=== PATIENT | female | born 1990 | race American Indian/Alaskan Native ===

== ENCOUNTER 2024-04-04 01:28 | Emergency (ER) | payer MEDICAID, SELFPAY ==
[2024-04-04 01:29] VITALS: BMI 55.0
[2024-04-04 02:29] VITALS: BP 152/78; PULSE 70; RESP 18; TEMP 36.9; O2SAT 96
[2024-04-04] MEDS: DEXAMETHASONE SOD PHOS INJ 10 MG/ML VIAL 20 MG PO (02:56)
[2024-04-04] MEDS: DiphenhydrAMINE 25 MG CAPSULE 50 MG PO (02:57)
[2024-04-04] MEDS: FAMOTIDINE 20 MG TABLET 40 MG PO (02:57)
--- NOTE | 2024-04-04 04:55 | PD.EDALLER ---
ED Allergic Reaction RME/HPI General Chief complaint: Skin/Abscess/Foreign Body Stated complaint: BROKE OUT IN HIVES Time Seen by Provider: 04/04/24 02:22 Arrival date/time: 04/04/24 01:28 33F with no significant PMH presents to ED with 3 days of generalized itchy rash. Patient denies new meds, foods, hygiene products, SOB, and throat swelling. Limitations: no limitations Related Data Home Medications ?Medication ?Instructions ?Recorded ?Confirmed ergocalciferol (vitamin D2) 1,250 50,000 unit PO QWEEK 10/13/18 10/31/18 mcg (50,000 unit) capsule (Vitamin D2) vitamins-iron fumarate 27 1 tab PO QDAY 10/24/18 10/31/18 mg iron-folic acid 0.8 mg tablet ( Vitamin) Previous Rx's ?Medication ?Instructions ?Recorded ibuprofen 800 mg tablet 800 mg PO Q6H PRN pain #90 tabs 10/31/18 prednisone 50 mg tablet 50 mg PO QDAY 7 days #7 tabs 04/04/24 Allergies Allergy/AdvReac Type Severity Reaction Status Date / Time Penicillins Allergy Unknown SWELLING Verified 08/17/23 16:56 Review of Systems Review of Systems Systems Reviewed: All systems reviewed, normal except as documented Constitutional Constitutional: Reports system reviewed and no additional complaints, except as documented, Denies fever(s) and Denies headache(s) ENT Ears, Nose, Mouth, and Throat: Denies disequilibrium and Denies headache(s) Cardiovascular Cardiovascular: Reports system reviewed and no additional complaints, except as documented, Denies chest pain and Denies dyspnea Respiratory Respiratory: Reports system reviewed and no additional complaints, except as documented, Denies cough and Denies dyspnea Gastrointestinal Gastrointestinal: Reports system reviewed and no additional complaints, except as documented, Denies abdominal pain, Denies nausea and Denies vomiting Integumentary/Breasts Skin/Breast: Reports as per HPI, Reports pruritus and Reports rash Neurologic Neurologic: Reports system reviewed and no additional complaints, except as documented, Denies confusion, Denies disequilibrium and Denies headache(s) Psychiatric Psychiatric: Denies confusion Past Medical History Past Medical History NEUROLOGIC: Positive Head Trauma (skull fracture age 13) CARDIAC: Negative Congestive Heart Failure RESPIRATORY: Negative Chronic Obstructive Pulmonary Disease (COPD) GASTROINTESTINAL: Positive Obesity GENITOURINARY: Positive Genitourinary Disorders (UTI); Negative Renal Disease REPRODUCTIVE: Positive Previous Pregnancies (8, 1 vaginal and 6 SAB) MUSCULOSKELETAL: Positive Scoliosis and Fractures (left ulna 2014) ENT: Positive Ear Infection (10/2018) and Head Trauma (skull fracture age 13) ENDOCRINE: Negative Diabetes Mellitus Type 1 or Diabetes Mellitus Type 2 HEMATOLOGIC: Positive Anemia PSYCHO/SOCIAL: Positive Depression (after family when age 13) OTHER HISTORY: Positive Hospitalization (2 surgeries and vaginal delivery) and Chicken Pox Family History FAMILY HISTORY: Positive Family Psychiatric Problems (2 brothers, paternal uncle depression/ suicide.), Family Respiratory Disorders (daughter asthma), Family Cardiac Disorders (MGM and Father HTN, Father enlarged and weeping heart, MGM Stroke), Family Gastrointestinal Problems (sister ulcers), Family Cancer (MGGM breast, PGM ovarian) and Family Surgery (multilple family members) Surgical History SURGICAL: Negative Section Social History SMOKING STATUS: Never smoker ED Exam General Limitations: Present no limitations General appearance: Present alert and in no apparent distress Head Head exam: Present atraumatic Eye Eye exam: Present normal appearance, PERRL and EOMI ENT ENT exam: Present normal exam, normal oropharynx and mucous membranes moist Neck Neck exam: Present normal inspection, full ROM and trachea midline Chest Chest inspection: Present normal inspection and symmetric chest wall rise Respiratory Respiratory exam: Present normal lung sounds bilaterally Cardiovascular Cardiovascular exam: Present regular rate, normal rhythm and normal heart sounds Abdominal Exam Abdominal exam: Present soft and normal bowel sounds Extremities Exam Extremities exam: Present normal inspection and full ROM Back Exam Back exam: Present normal inspection and full ROM Neurological Exam Neurological exam: Present alert, oriented X3 and CN II-XII intact Psychiatric Psychiatric exam: Present normal affect and normal mood Skin Skin exam: Present warm, dry, intact, normal color and rash Course Quality Measures none Orders Category Date Time Status Dexamethasone Inj [Decadron Inj] Med 04/04/24 03:00 Discontinued 20 mg PO X1 ONE DiphenhydrAMINE [Benadryl] Med 04/04/24 02:40 Discontinued 50 mg PO X1 ONE Famotidine [Pepcid] Med 04/04/24 02:40 Discontinued 40 mg PO X1 ONE Vital Signs Vital signs: Vital Signs Temperature 98.4 F 04/04/24 02:29 Pulse Rate 70 04/04/24 02:29 Respiratory Rate 18 04/04/24 02:29 Blood Pressure 152/78 H 04/04/24 02:29 Pulse Oximetry (%) 96 04/04/24 02:29 Oxygen Delivery Method Room Air 04/04/24 02:29 O2 at 96% on RA and WNLs Allergic Reaction MDM Narrative MDM Narrative:: 33F with no significant PMH presents to ED with 3 days of generalized itchy rash. Patient denies new meds, foods, hygiene products, SOB, and throat swelling. Physical exam reveals generalized urticarial rash. Clear ENT and lungs. Patient is afebrile, calm, and alert. Meds relieved symptoms. Patient data External records reviewed:: [facility] previous records Clinical information provided by:: patient Social determinants that could affect healthcare access:: none Patient has the following chronic illnesses:: none How is presenting disease/condition affected by chronic disease/condition?: no chronic disease Evaluation data The following diagnostics were reviewed and interpreted by me:: other (specify) (none) Lab and/or radiology exams considered but not ordered:: not ordered Interpretation Summary: n/a Medications / Prescriptions Medications or Prescriptions considered but not ordered:: ordered Medication administrations:: Medication Administration History Discontinued Medications Dexamethasone Sodium Phosphate (Dexamethasone Sod Phos Inj 10 Mg/Ml Vial) 20 mg PO X1 ONE; Protocol Stop: 04/04/24 03:01 Last Admin: 04/04/24 02:56 Dose: 20 mg Documented By: TONIA Diphenhydramine HCl (Diphenhydramine 25 Mg Capsule) 50 mg PO X1 ONE Stop: 04/04/24 02:41 Last Admin: 04/04/24 02:57 Dose: 50 mg Documented By: TONIA Famotidine (Famotidine 20 Mg Tablet) 40 mg PO X1 ONE Stop: 04/04/24 02:41 Last Admin: 04/04/24 02:57 Dose: 40 mg Documented By: TONIA above Consultations Consultation(s) initiated? (list below): No Diagnosis Differential Diagnosis allergic reaction: anaphylaxis, allergic reaction, angioedema, contact dermatitis, adverse reaction to drug, viral enanthem and urticaria Most likely diagnosis given after review of the tests above:: urticaria Admission Indicated Admission indicated?: not indicated Admission Request Was there a request for admission?: No Disposition Plan Disposition Plan: Discharge Discharge Attestation Discharge Attestation: The patient and all family members were given an opportunity to ask questions and understood the discharge instructions. Discharge instructions specifically effects, indications for sooner follow up or return to the emergency department, and the expected course of current diagnosis. Patient condition: Stable Discharge Plan Plan Patient Disposition: HOME (Self Care) Disposition Comment: Stable Prescriptions/Referrals Prescriptions/Med Rec: New prednisone 50 mg tablet 50 mg PO QDAY 7 Days Qty: 7 0RF No Action ibuprofen 800 mg tablet 800 mg PO Q6H PRN (Reason: pain) Qty: 90 0RF ergocalciferol (vitamin D2) [Vitamin D2] 50,000 unit Capsule 50,000 unit PO QWEEK Vitamin 27 mg iron- 0.8 mg Tablet 1 tab PO QDAY Referrals: Amaury Rivero PA-C [Primary Care Provider] - In 1 week Problem List Clinical Impression: Urticaria Patient/Caregiver Discharge Instructions Education Materials: ED Hives (Adult) Additional Instructions: Please follow-up with PCP within 24-48 hours and return immediately if symptoms worsen. Take OTC antihistamine as needed until symptoms resolve. Finish entire steroid course. If problem persists, can see workers compensation administrator. Print Language: Swedish Stand Alone Forms: Patient Portal Info Letter GRACIELA/ARABELLA Supervising Physician MOE Supervising Physician: Dr. Pugh
[2024-04-04 05:03] VITALS: BP 125/83; PULSE 71; RESP 17; TEMP 36.6; O2SAT 98
== END 2024-04-04 05:05 | disposition home or self-care (01) ==
PROVIDERS: Emergency Provider Emergency Medicine; PCP Physician Assistant
DX: L50.9 Urticaria, unspecified (principal)
CPT/HCPCS: 99282; J1100; A9270